=== PATIENT | male | born 1965 | race Caucasian/White ===

== ENCOUNTER 2016-12-03 08:13 | Emergency (ER) | payer BC ==
--- NOTE | 2016-12-03 08:39 | ERNOTE ---
Chest Pain/Cardiac HPI Date of Service: 12/03/16 Chief Complaint: Chest Pain Time Seen by Provider: 12/03/16 08:28 Source: patient, RN notes reviewed, EMS notes reviewed Exam Limitations: no limitations Immunizations: IMMUNIZATION HX Immunizations Up to Date Yes History of Influenza Vaccine No Allergies/Adverse Reactions: Allergies No Known Allergies Allergy (Verified 12/03/16 08:23) Home Medications: HOME MEDICATIONS NK [No Home Medication] 03/11/14 [Last Taken Unknown] Narrative: 51-year-old white male presents via EMS with chest pain. Patient states he developed right arm shoulder and right-sided chest pain this morning while at work. 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 He's had pain for about 2 hours. No prior history of pain like this. He describes it as something sitting on his chest. He was given 4 baby aspirin and 2 sublingual nitroglycerin with good relief of his chest pain. He did not have associated diaphoresis. He had no shortness of breath. Denies any history of hypertension or hyperlipidemia or diabetes he states his father had a myocardial infarction at age 70. Currently patient is nearly chest pain-free. He does smoke cigarettes. Associated Symptoms: Absent: dizziness, syncope, shortness of breath, diaphoresis, fever/chills, palpitations, heartburn, nausea, vomiting, abdominal pain, back pain Prior Chest Pain/Cardiac Workup: Reports: no prior cardiac workup Review of Systems - Review of Systems Constitutional: Present: no symptoms reported, See HPI. Absent: recent illness , fever, chills EYE: Present: no symptoms reported ENT: Present: no symptoms reported Respiratory: Present: no symptoms reported Cardiology: Present: See HPI, chest pain. Absent: palpitations, syncope, edema , claudication Gastrointestinal/Abdominal: Absent: nausea, vomiting Genitourinary: Present: no symptoms reported Musculoskeletal: Present: See HPI Skin: Present: no symptoms reported Neurological: Present: no symptoms reported Endocrine: Present: no symptoms reported Hematologic/Lymphatic: Present: no symptoms reported Psych: Present: no symptoms reported - Patient's Past Medical History Patient History - Medical: No pertinent hx Patient History - Cardiac/Respiratory: No pertinent hx Patient History - Cancer: No Hx of Cancer Patient History - Surgical Procedures: T & A Patient History - Other: None - Family History Father Family History - Cardiac/Respiratory: Hypertension, Myocardial Infarction - Social History Living Situations: home Psych History: No pertinent hx Smoking Status: Current every day smoker Have you smoked in the past 12 months: Yes - Immunizations Immunizations Up to Date: Yes History of Influenza Vaccine: No Physical Exam - Physical Exam General Appearance: Present: wd/wn, alert, no apparent distress Head Exam: Present: normal inspection Eye Exam: Normal inspection: bilateral, PERRL: bilateral, EOMI: bilateral Ears, Nose, Throat: Present: normal ENT inspection Neck: Present: normal inspection Respiratory: Present: no respiratory distress Cardiovascular/Chest: Present: regular rate, rhythm, no murmur, normal peripheral pulses Gastrointestinal/Abdominal: Present: normal bowel sounds, nontender, nondistended, soft Back Exam: Present: normal inspection Extremity Exam: Present: normal inspection, no edema Neurological Exam: Present: alert, oriented, normal mood/affect, no motor/ sensory deficits Skin Exam: Present: normal color, warm/dry ED Progress - Results and Orders Patient's Lab Results:: I have reviewed the patient's lab results. - Vital Signs Patient's Vital Signs:: I have reviewed the patient's vital signs. Vital Signs: Vital Signs 12/03/16 08:15 Temperature 37.5 C Pulse Rate 78 Respiratory 16 Rate Blood Pressure 143/79 O2 Sat by Pulse 95 Oximetry - EKG EKG: NSR, other - rate of 68 EKG read: Reviewed by me - X-Ray X-Ray #1 Interpretation: Reviewed by me - no acute disease - Progress/Reassessment Chief Complaint: Chest Pain Progress:: Improved Progress Note-Subjective: 12/03/16 13:16 Serial troponin was negative. Plan - Plan Plan: Patient was offered hospitalization with serial cardiac testing and cardiac stress test as well. He is refuses. He opted to have a serial cardiac enzymes in the ED. This was done. This was negative. All results were discussed with patient and his family. They verbalized understanding. Patient was told stop smoking. Patient was told to follow up his primary care physician for outpatient cardiac stress testing. He should return to the ED at any time he has recurrence of his chest symptomatology. Departure - Departure Clinical Impression: Tobacco abuse Chest pain Qualifiers: Chest pain type: unspecified Qualified Code(s): R07.9 - Chest pain, unspecified Disposition: Home self-care Condition: Good Instructions: Nonspecific Chest Pain, [id number] Additional Instructions: Patient will need to take one aspirin daily. He will need to return to the hospital if he has any recurrence of his chest pain. Stop smoking. Follow-up with primary care physician for outpatient cardiac stress testing and routine medical care.
[2016-12-03 08:42] LABS: Hematocrit 42.1 % (42.0-52.0); Hemoglobin 14.5 gm/dL (13.5-18.0); Mean Cell Volume 86.8 fl (78-100); Mean Corpuscular Hemoglobin 29.9 pg (27-31); Mean Corpuscular Hgb Conc 34.4 g/dl (32-36); Mean Platelet Volume 9.4 fl (6.0-9.5); Neutrophil # 6.7 K/mm3 (1.3-6.0); Neutrophil % 58.2 % (42-75.0); Platelet Count 194 K/mm3 (150-450); Red Blood Count 4.85 M/mm3 (4.7-6.0); Red Cell Distribution Width 12.8 % (11.5-14.0); White Blood Count 11.4 K/mm3 (4.0-10.5)
[2016-12-03 08:54] LABS: Prothrombin Time (Patient) 10.6 Seconds (9.4-11.4)
[2016-12-03 08:55] LABS: INR 1.02 INR (0.90-1.10)
[2016-12-03 09:02] LABS: BUN/Creatinine Ratio 14.5 (9.0-21.6); Blood Urea Nitrogen 16 mg/dL (6-23); Glucose * 101 mg/dL (70-110); Sodium 139 mmol/L (132-142)
[2016-12-03 09:03] LABS: ALT 40 U/L (19-67); AST 28 U/L (0-48); Albumin * 3.3 gm/dl (3.4-5.0); Alkaline Phosphatase * 86 U/L (50-170); Anion Gap 12.7 mmol/L (6.8-13.8); Bilirubin, Total 0.6 mg/dL (0.0-1.1); Ca. Corrected For Albumin 8.8 mg/dL (8.4-10.2); Calcium * 8.6 mg/dL (7.9-10.9); Chloride 105 mmol/L (97-106); Potassium 3.7 mmol/L (3.4-4.6); Total Protein 6.3 gm/dL (6.2-8.2)
[2016-12-03 09:06] LABS: Troponin I Less than 0.017 ng/ml (0.00-0.10)
[2016-12-03 13:35] VITALS: BP 135/79
== END 2016-12-03 13:30 | disposition home or self-care (01) ==
LOC: ER 08:13
DX: R07.9 Chest pain, unspecified (principal); F17.200 Nicotine dependence, unspecified, uncomplicated